=== PATIENT | female | born 1990 | race Caucasian/White ===

== ENCOUNTER → 2016-12-23 | Outpatient (CLI) | payer BC ==
[~2016-12-23] MED LIST: FERR1TAB23 PO; FEXO1TAB46 PO
--- NOTE | 2016-12-23 16:59 | DIAGNOSTIC IMAGING REPORT ---
CHEST 2 VIEWS ROUTINE CLINICAL HISTORY: Abnormal preoperative chest radiograph. COMPARISON STUDY: Chest radiograph December 16, 2016. TECHNIQUE: PA and lateral chest radiographs were obtained with nipple markers in place. FINDINGS: The left lower lung nodular density shown on prior study is less well-defined on this exam. This reflected the left nipple. The lungs are clear. Cardiac size is normal. Mediastinal contours are normal. There is no evidence of pulmonary edema. IMPRESSION: 1. No acute cardiopulmonary findings. 2. The left lower lung nodular density shown on prior exam of December 16, 2016 is less well-defined on this exam and reflected the left nipple. No pulmonary nodules identified. Electronically signed by: Mati Mariee M.D. 12/23/2016 4:58 PM Dictated Date/Time: 12/23/2016 4:55 PM
== END | disposition home or self-care (01) ==
LOC: C.RAD 16:30
DX: Z01.818 Encounter for other preprocedural examination (principal)

== ENCOUNTER → 2016-12-31 | Day surgery (SDC) | payer BC ==
[2016-12-13 10:17] VITALS: Ht 157.5 cm; Wt 52.3 kg
[2016-12-16 15:39] LABS: BASO % 0.2 %; BASO ABS # 0.01 K/uL (0-0.2); COMPLETE YES; EOS % 2.6 %; HEMATOCRIT 36.4 % (37-47); IG% 0.2 %; LYMPH % 28.6 %; LYMPH ABS # 1.22 K/uL (1.2-3.4); MEAN CELL VOLUME 91.7 fL (80-100); MEAN CORPUSCULAR HEMOGLOBIN 30.5 pg (25-34); MEAN CORPUSCULAR HGB CONC 33.2 g/dl (32-36); MEAN PLATELET VOLUME 10.2 fL (7.4-10.4); NEUT % 57.4 %; PLATELET COUNT 192 K/uL (130-400); RED BLOOD COUNT 3.97 M/uL (4.2-5.4); WHITE BLOOD COUNT 4.27 K/uL (4.8-10.8)
--- NOTE | 2016-12-16 15:40 | DIAGNOSTIC IMAGING REPORT ---
CHEST 2 VIEWS ROUTINE CLINICAL HISTORY: Preoperative evaluation. COMPARISON STUDY: Chest radiograph March 20, 2013. FINDINGS: Lung volumes are normal. There is no pneumothorax or pleural effusion. A 1.6 cm nodular density projects over the left mid to lower lung. Right lung is clear. There is no evidence of pulmonary edema. Cardiomediastinal silhouette is normal. IMPRESSION: 1. 1.6 cm nodular density which projects over the mid to lower left lung. This could reflect a nipple shadow, minimal airspace disease or a pulmonary nodule. Follow-up PA and shallow oblique radiographs of the chest with nipple markers are recommended. 2. No acute cardiopulmonary findings. Electronically signed by: Mati Mariee M.D. 12/16/2016 3:39 PM Dictated Date/Time: 12/16/2016 3:35 PM
[2016-12-16 15:49] LABS: PROTHROMBIN TIME (PATIENT) 10.5 SECONDS (9.0-12.0)
[2016-12-16 16:04] LABS: POTASSIUM 3.9 mmol/L (3.5-5.1)
[2016-12-16 16:05] LABS: PREG INTERNAL NEGATIVE QC NEG CLEAR BACKGROUND; PREG INTERNAL POSITIVE QC POS CONTROL LINE
[~2016-12-31] VITALS: Ht 157.5 cm; Wt 52.3 kg
[~2016-12-31] MED LIST changes: +ACETAMINOPHEN/HYDROCODONE ELIX 15 ML/CUP UDP PO PRN; +ATROPINE SULFATE 0.1 MG/ML 5ML SYR IV PRN; +BACITRACIN/POLYMYXIN B OINT 15 GM TUBE EXT ONE; +DEXAMETHASONE SOD INJ 4 MG/ML VIAL ONE; +EpHEDrine SULFATE INJ 50 MG/ML AMP IV PRN; +FENTANYL CITRATE INJ 50 MCG/1 ML 2 ML VIAL IV PRN; +FENTANYL CITRATE INJ 50 MCG/1 ML 2 ML VIAL ONE; +FLUMAZENIL 0.1 MG/1 ML 10 ML VIAL IV PRN; +GLYCOPYRROLATE INJ 0.2 MG/ML VIAL ONE; +HYDROmorphone INJ 2 MG/ML SYR/VIAL IV PRN; +LABETALOL HCL IV 5 MG/ML 20ML IV PRN; +LIDOCAINE 2% JELLY 5 ML TUBE EXT ONE; +LIDOCAINE HCL 2% 2 ML VIAL (20MG/ML) ONE; +MIDAZOLAM HCL 1 MG/ML 2ML VIAL ONE; +NALOXONE HCL 0.4 MG/1 ML VIAL/CARP IV PRN; +NEOSTIGMINE METHYLSULFATE 5 MG/5 ML SYR ONE; +NURSING VERBAL MED ORDER ONE; +ONDANSETRON INJ 2 MG/ML 2 ML VIAL IV PRN; +ONDANSETRON INJ 2 MG/ML 2 ML VIAL ONE; +PHENYLEPHRINE 100MCG/ML 5ML SYR IV PRN; +PROMETHAZINE HCL INJ 12.5 MG in SODIUM CHLORIDE 0.9% 50ML 50 ML IV PRN; +PROPOFOL IV EMULSION 10 MG/ML 20 ML VIAL IV ONE; +ROCURONIUM BROMIDE 10 MG/ML 5 ML VIAL ONE; +SUCCINYLCHOLINE CHLORIDE 20 MG/ML 10 ML VIAL IV ONE
[2016-12-31] MEDS: LACTATED RINGER'S 1000ML 1,000 ML IV SCH ×2 (08:27→10:49)
--- NOTE | 2016-12-31 09:10 | History and Physical: Surg Cnt ---
History & Physical Date Dec 31, 2016. Chief Complaint CHRONIC TONSILLITIS History of Present Illness The patient is a 26 year old female with complaints of CHRONIC TONSILLITIS. Past Medical/Surgical History PMH: ASTHMA PSH: S/P ORAL SURGERY, S/P COLPOSCOPY Additional History Hepatic Disease: No Endocrine Disorder: No Kidney Disease: No Hypertension: No Heart Disease: No Bleeding Tendencies: No Infectious Diseases: No Allergies Coded Allergies: NO KNOWN DRUG ALLERGIES (Unverified Allergy, Unknown, unknown, 12/31/16) NUTS (Unverified Allergy, Unknown, unknown, 12/31/16) POLLEN (Unverified Allergy, Unknown, unknown, 12/31/16) Tree Extract (Verified Allergy, Unknown, UNKNOWN, 12/31/16) Home Medications Scheduled Fexofenadine Hcl (Rachell), 180 MG PO QAM Scheduled PRN Ferrous Sulfate (Iron), 1 TAB PO DAILY PRN for TIREDNESS Physical Examination Skin: warm/dry, no rash Eyes: normal inspection, EOMI, sclerae normal ENT: + pertinent finding (3-4+ INFLAMED TONSILS) Head: normocephalic, atraumatic Neck: supple, no adenopathy, trachea midline Respiratory/Chest: lungs clear, normal breath sounds, no respiratory distress Cardiovascular: regular rate, rhythm, no edema, no murmur Neurologic/Psych: no motor/sensory deficits, alert, normal reflexes, oriented x 3 Diagnosis CHRONIC TONSILLITIS Plan of Treatment TONSILLECTOMY, POSSIBLE ADENOIDECTOMY
--- NOTE | 2016-12-31 09:38 | [facility] Operative Report ---
Operative Report Operative Date Dec 31, 2016. Pre-Operative Diagnosis Chronic Tonsillitis, Tonsillar Hypertrophy Post-Operative Diagnosis Same Procedure(s) Performed Tonsillectomy Surgeon Dr. Marshall City Manager Surgeon(s) None Estimated Blood Loss 5 ml Findings 1. NO ADENOIDS 2. 3-4+ TONSILS Specimens A. Right Tonsil B. Left Tonsil I attest to the content of the Intraoperative Record and any orders documented therein. Any exceptions are noted below.
--- NOTE | 2016-12-31 09:41 | Discharge Instructions ---
Discharge Instructions Date of Service Dec 31, 2016. Admission Reason for Admission: Chronic Tonsillitis, Tonsillar Hypertrophy Discharge Discharge Diagnosis / Problem: SAME Discharge Goals Goal(s): Therapeutic intervention Activity Recommendations Activity Limitations: as noted below LIGHT ACTIVITY FOR 2WEEKS . Current Hospital Diet Patient's current hospital diet: Full Liquid Diet Discharge Diet Recommended Diet: Full Liquid Diet Diet Texture: Mechanical Soft (ground) Procedures Procedures Performed: Tonsillectomy Pending Studies Studies pending at discharge: no Medical Emergencies . Who to Call and When: Medical Emergencies: If at any time you feel your situation is an emergency, please call 911 immediately. . Non-Emergent Contact Non-Emergency issues call your: Surgeon . . "Provider Documentation" section prepared by Esequiel Marshall. . VTE Core Measure Inpt VTE Proph given/why not?: SCD's
--- NOTE | 2016-12-31 10:04 | OPERATIVE REPORT ---
DATE OF OPERATION: 12/31/2016 PREOPERATIVE DIAGNOSIS: Chronic tonsillitis. POSTOPERATIVE DIAGNOSIS: Chronic tonsillitis. PROCEDURE: Bilateral tonsillectomy. SURGEON: Dr. Marshall. ANESTHESIA: General endotracheal. ESTIMATED BLOOD LOSS: 5 mL. FINDINGS: 1. Normal palate. 2. No evidence of adenoid tissue. 3. 3-4+ cryptic endophytic tonsils bilaterally with excessive tonsillith formation. SPECIMENS: Right and left tonsil sent separately for permanent pathological assessment. COMPLICATIONS: None. INDICATIONS FOR THE PROCEDURE: The patient is a 26-year-old female with the above-mentioned history who presents for the above-mentioned procedure on an outpatient elective basis. DETAILS OF PROCEDURE: After informed consent had been obtained from the patient, the patient was wheeled to the operating room and placed on the operating table in the supine position. Monitors were placed. After induction of general endotracheal anesthesia, the table was turned 90 degrees and the patient's head and neck were gently extended. Antibiotic ointment was applied to the lips and a mouth gag was carefully inserted, opened, and stabilized on a roll of towels. The palate was inspected and was found to be normal. A catheter was then inserted into the right nasal cavity and this was used to elevate the soft palate and uvula. A laryngeal mirror was used to inspect the nasopharynx and the intraoperative findings were of no evidence of adenoid tissue. An Allis clamp was then used to grasp the right tonsil in the superior pole and Bovie electrocautery was used to remove the tonsil in the capsular plane with care to preserve the underlying mucosa and musculature of the anterior and posterior tonsillar pillars. The left tonsil was then removed in a similar fashion. The intraoperative findings were 3-4+ tonsils bilaterally with excessive tonsillith formation. The tonsils were sent separately for permanent pathological assessment. The mouth gag was then released for 1 minute. This was reopened and hemostasis was confirmed. An orogastric tube was placed and the stomach was suctioned free of air and stomach contents. 2% lidocaine jelly was placed in the bilateral tonsillar fossae for added anesthetic effect. This marked the end of the case. The patient tolerated the procedure well. There were no apparent complications. The patient was extubated and transferred to recovery room in stable condition. I attest to the content of the Intraoperative Record and any orders documented therein. Any exception s are noted below.
[2016-12-31] MEDS: MEPERIDINE HCL 25 MG/ML CARP IV PRN ×2 (10:21→10:27)
--- NOTE | 2016-12-31 10:38 | Anesthesia Progress Nt - [facility] ---
Anesthesia Post Op Note Date & Time Dec 31, 2016 at 10:38 Vital Signs Pain Intensity: 3 Vital Signs Past 12 Hours Date Time Temp Pulse Resp B/P (MAP) Pulse Ox O2 Delivery O2 Flow Rate FiO2 12/31/16 10:01 36.6 70 16 140/98 100 Humidified Oxygen 6 Diffusion Mask 12/31/16 08:09 36.6 60 16 133/78 (96) 100 Room Air Notes Mental Status: alert / awake / arousable, participated in evaluation Pt Amnestic to Procedure: Yes Nausea / Vomiting: adequately controlled Pain: adequately controlled Airway Patency, RR, SpO2: stable & adequate BP & HR: stable & adequate Hydration State: stable & adequate Anesthetic Complications: no major complications apparent
[2016-12-31 11:01] VITALS: TEMP 36.7
[2016-12-31 11:43] VITALS: BP 134/82; PULSE 54; O2SAT 100
== END | disposition home or self-care (01) ==
LOC: X.SURG 07:56
DX: J35.01 Chronic tonsillitis (principal); J45.909 Unspecified asthma, uncomplicated; F41.9 Anxiety disorder, unspecified; Z87.891 Personal history of nicotine dependence